=== PATIENT | female | born 1940 | race Caucasian/White ===

== ENCOUNTER 2018-05-19 17:31 | Emergency (ER) | payer MEDICARE, OTHER ==
[~2018-05-19] VITALS: Ht 154.9 cm; Wt 63.6 kg
[2018-05-19 18:16] LABS: BASOPHILS # (AUTO) 0.1 X10'3 (0-0.2); BASOPHILS % (AUTO) 0.7 % (0-1); EOSINOPHILS # (AUTO) 0.3 X10'3 (0-0.9); EOSINOPHILS % (AUTO) 3.2 % (0-6); HEMATOCRIT 31.9 % (35.0-45.0); HEMOGLOBIN 10.8 g/dl (12.0-16.0); LYMPHOCYTES % (AUTO) 37.7 % (21-51); MEAN CORPUSCULAR HEMOGLOBIN 31.1 PG (27.0-31.0); MEAN CORPUSCULAR HGB CONC 33.8 % (33.0-36.5); MEAN PLATELET VOLUME 11.2 FL (7.4-10.4); MONOCYTES # (AUTO) 0.8 X10'3 (0-0.9); MONOCYTES % (AUTO) 10.1 % (2-12); NEUTROPHILS # (AUTO) 3.9 X10'3 (1.8-7.7); NEUTROPHILS % (AUTO) 48.3 % (42-75); PLATELET COUNT 235 X10'3 (140-440); RED BLOOD COUNT 3.47 X10'6 (4.20-5.60); RED CELL DISTRIBUTION WIDTH 14.9 % (11.5-14.5); WHITE BLOOD COUNT 8.1 X10'3 (4.5-11.0)
[2018-05-19 18:28] LABS: ALANINE AMINOTRANSFERASE 24 U/L (12-78); ALBUMIN 3.8 G/DL (3.4-5.0); ALBUMIN/GLOBULIN RATIO 1.2 (1.1-1.5); ALKALINE PHOSPHATASE 57 IU/L (46-116); ANION GAP 10 (8-16); ASPARTATE AMINO TRANSFERASE 21 U/L (10-37); BILIRUBIN,TOTAL 0.3 MG/DL (0.1-1.0); BLOOD UREA NITROGEN 17 MG/DL (7-18); BUN/CREATININE RATIO 13.3 (6.6-38.0); CALCIUM 9.5 MG/DL (8.5-10.1); CHLORIDE 105 MMOL/L (99-107); CREATININE 1.28 MG/DL (0.40-0.90); GLUCOSE 95 MG/DL (70-104); MAGNESIUM 2.1 MG/DL (1.5-2.4); PARTIAL THROMBOPLASTIN TIME 23 SECONDS (22-32); POTASSIUM 4.3 MMOL/L (3.5-5.1); PROTHROMBIN TIME 10.1 SECONDS (9.0-12.0); SODIUM 140 MMOL/L (135-145); TOTAL CARBON DIOXIDE 24.8 MMOL/L (24-32); TOTAL PROTEIN 6.9 G/DL (6.4-8.2); eGFR 40 ML/MIN
[2018-05-19 18:33] LABS: PLATELET ESTIMATE NORMAL
[2018-05-19 18:35] LABS: LARGE PLATELETS MODERATE
[2018-05-19] MEDS ORDERED: BUPIVAcaine 0.5% inj/PF 30 ml vial IJ ONE (20:20)
[2018-05-19] MEDS ORDERED: LIDOcaine 1.5% w/epinephrine 1:200,000 5ml ampul IJ ONE (21:10)
[2018-05-19] MEDS ORDERED: HYDR-3965 PO (21:41)
[2018-05-19] MEDS ORDERED: ONDA4TAB9 PO (21:41)
[2018-05-19 22:21] VITALS: BP 128/81
== END 2018-05-19 22:23 | disposition home or self-care (01) ==
LOC: ER 17:32
DX: M23.91 Unspecified internal derangement of right knee (principal); Z88.2 Allergy status to sulfonamides; Z79.899 Other long term (current) drug therapy
CPT/HCPCS: 20610; 36415; 80053; 83735; 84484; 85025; 85379; 85610; 85730; 93005; 93971; 99285; J3490

== ENCOUNTER 2018-06-23 13:43 | Outpatient (CLI) | payer MEDICARE, OTHER ==
[2018-06-23 13:46] VITALS: BP 142/77
== END 2018-06-23 14:20 | disposition home or self-care (01) ==
LOC: ORTHO 13:43
PROVIDERS: ATTEND Nurse Practitioner Family
DX: M71.21 Synovial cyst of popliteal space [Baker], right knee (principal); I10 Essential (primary) hypertension; Z72.89 Other problems related to lifestyle; Z88.2 Allergy status to sulfonamides
CPT/HCPCS: 99212

== ENCOUNTER 2018-07-14 09:51 | Outpatient (CLI) | payer MEDICARE, OTHER ==
[2018-07-14 09:53] VITALS: BP 153/75
== END 2018-07-14 10:17 | disposition home or self-care (01) ==
LOC: ORTHO 09:51
PROVIDERS: ATTEND Nurse Practitioner Family
DX: S89.91XD Unspecified injury of right lower leg, subsequent encounter (principal); M71.21 Synovial cyst of popliteal space [Baker], right knee; I10 Essential (primary) hypertension; Z88.2 Allergy status to sulfonamides; Z79.899 Other long term (current) drug therapy; X58.XXXD Exposure to other specified factors, subsequent encounter
CPT/HCPCS: 99213; A6449

== ENCOUNTER 2021-07-04 12:46 | Outpatient (CLI) | payer MEDICARE, OTHER | END 2021-07-04 23:59 | disposition home or self-care (01) | LOC: CARD DIAG 12:46 | DX: G45.9 Transient cerebral ischemic attack, unspecified (principal) | CPT/HCPCS: 93306 ==